=== PATIENT | female | born 1970 | race American Indian/Alaskan Native ===

== ENCOUNTER 2020-11-22 13:23 | Emergency (ER) | payer MEDICARE ==
[2020-11-22 14:52] VITALS: BP 116/79
--- NOTE | 2020-11-22 14:57 | Event Note ---
ED Screening Note ED Screening Note: meds topamax insulin metformin albuterol lisinopril jaquan motrin a/c migraines co todd for 2 weeks states its trobbing and I cant get rid of it odd affect states this is different no trauma no n/v pmh asthma htn dm migraines vss This initial assessment/diagnostic orders/clinical plan/treatment(s) is/are s ubject to change based on patients health status, clinical progression and re- assessment by fellow clinical providers in the ED. Further treatment and workup at subsequent clinical providers discretion. Patient/guardian urged not to elope from the ED as their condition may be serious if not clinically assessed and managed. Initial orders include: a/c migraines-- states pain different and pt has blunted affect she says its been a while since she had ct ct scan head ro ap
--- NOTE | 2020-11-22 16:22 | Cat Scan Report ---
CT BRAIN: 11/24/2020 INDICATION / CLINICAL INFORMATION: headache. COMPARISON: None available. FINDINGS: BRAIN/INTRACRANIAL STRUCTURES: Unenhanced CT images of the brain demonstrate no evidence of acute int racranial abnormality. Ventricles and sulci are normal in size and shape. There is no evidence of ischemic injury, hemorrhage, or mass. There are no abnormal extra-axial fluid collections. EXTRACRANIAL STRUCTURES: Unremarkable. IMPRESSION: Negative unenhanced CT of the brain. All CT scans at this location are performed using dose reduction to ALARA by means of automated expos ure control. Signer Name: Archie Bryant MD Signed: 11/22/2020 4:18 PM Workstation Name: [id number]
[2020-11-22] MEDS ORDERED: METOCLOPRAMIDE 10 MG TAB PO ONE (16:55)
[2020-11-22] MEDS ORDERED: diphenhydrAMINE 25 MG CAP PO ONE (16:55)
[2020-11-22] MEDS ORDERED: SUMAtriptan SUCCINATE 25 MG TAB PO ONE (17:00)
--- NOTE | 2020-11-22 17:03 | Emergency Department Report ---
ED Headache HPI - General Chief Complaint: Headache Stated Complaint: HEADACHE Time Seen by Provider: 11/22/20 14:54 - History of Present Illness Initial Comments: Patient is a 50-year-old female presents emergency room with complaints of a frontal headache that began 2 weeks ago. She states that it feels like a throbbing headache. She states that she has been taking topiramate, ibuprofen, Excedrin. She states that she only has a preventative migraine medication and has not taken abortive migraine medication. She states that she sees a neurologist and saw them earlier this month. She states that she also sees her primary care doctor Dr. Diaz. She states that this headache feels slightly worse than her usual migraines and believes she is having a breakthrough migraine. She denies any nausea, vomiting, fever, numbness, weakness, speech disturbance, gait disturbance. She states that occasionally her vision flare is blurry with increased pain but otherwise her vision is normal. She denies any blurry vision currently. Past medical history of diabetes, migraines, and hypertension. No allergies to medications. Allergies/Adverse Reactions: Allergies No Known Allergies Allergy (Verified 09/16/16 14:53) Home Medications: Ambulatory Orders Butalb/Acetaminophen/Caffeine [Fioricet 50-300-40 mg CAP] 1 cap PO Q8HR PRN #12 cap 11/22/20 Metoclopramide [Reglan] 10 mg PO Q8HR PRN #12 tablet 11/22/20 diphenhydrAMINE [Benadryl CAP] 25 mg PO Q6HR PRN #12 capsule 11/22/20 ED Review of Systems ROS: Stated complaint: HEADACHE Other details as noted in HPI Comment: All other systems reviewed and negative ED Past Medical Hx - Past Medical History Hx Hypertension: Yes Hx Diabetes: Yes Additional medical history: MIGRAINES - Surgical History Past Surgical History?: Yes Additional Surgical History: HYST/ R KNEE /LEFT 5TH FINGER SURG. TONSILLECTOMY - Social History Smoking Status: Never Smoker Substance Use Type: None - Medications Home Medications: Home Medications Medication Instructions Recorded Confirmed Last Taken Type Butalb/Acetaminophen/Caffeine 1 cap PO Q8HR PRN #12 cap 11/22/20 Unknown Rx [Fioricet 50-300-40 mg CAP] Metoclopramide [Reglan] 10 mg PO Q8HR PRN #12 tablet 11/22/20 Unknown Rx diphenhydrAMINE [Benadryl CAP] 25 mg PO Q6HR PRN #12 capsule 11/22/20 Unknown Rx ED Physical Exam - General Limitations: No Limitations General appearance: alert, in no apparent distress - Head Head exam: Present: atraumatic, normocephalic - Eye Eye exam: Present: normal appearance, PERRL, EOMI. Absent: periorbital swelling, periorbital tenderness - ENT ENT exam: Present: mucous membranes moist - Neck Neck exam: Present: full ROM. Absent: meningismus - Respiratory Respiratory exam: Present: normal lung sounds bilaterally. Absent: respiratory distress, wheezes, rales, rhonchi, stridor, chest wall tenderness, accessory muscle use, decreased breath sounds, prolonged expiratory - Cardiovascular Cardiovascular Exam: Present: regular rate, normal rhythm, normal heart sounds. Absent: systolic murmur, diastolic murmur, rubs, gallop - Neurological Exam Neurological exam: Present: alert, oriented X3, CN II-XII intact, normal gait. Absent: motor sensory deficit - Psychiatric Psychiatric exam: Present: normal affect, normal mood - Skin Skin exam: Present: warm, dry, intact ED Course Vital Signs 11/22/20 11/22/20 14:49 14:51 Pulse Rate 78 Respiratory 17 Rate Blood Pressure 116/79 [Right] O2 Sat by Pulse 99 Oximetry ED Medical Decision Making - Radiology Data Radiology results: report reviewed Ordering Physician: NOAM JO Date of Service: 11/22/20 Procedure(s): CT head/brain wo con Accession Number(s): [id number] cc: NOAM JO CT BRAIN: 11/24/2020 INDICATION / CLINICAL INFORMATION: headache. COMPARISON: None available. FINDINGS: BRAIN/INTRACRANIAL STRUCTURES: Unenhanced CT images of the brain demonstrate no evidence of acute intracranial abnormality. Ventricles and sulci are normal in size and shape. There is no evidence of ischemic injury, hemorrhage, or mass. There are no abnormal extra-axial fluid collections. EXTRACRANIAL STRUCTURES: Unremarkable. IMPRESSION: Negative unenhanced CT of the brain. All CT scans at this location are performed using dose reduction to ALARA by means of automated exposure control. Signer Name: Archie Bryant MD Signed: 11/22/2020 4:18 PM Workstation Name: [id number] Transcribed By: AO Dictated By: Archie Bryant MD Electronically Authenticated By: Archie Bryant MD Signed Date/Time: 11/22/201617 DD/ 14 TD/TT: - Medical Decision Making Patient is a 50-year-old female presents emergency room with complaints of a frontal headache that began 2 weeks ago. She states that it feels like a throbbing headache. She states that she has been taking topiramate, ibuprofen, Excedrin. She states that she only has a preventative migraine medication and has not taken abortive migraine medication. She states that she sees a neurologist and saw them earlier this month. She states that she also sees her primary care doctor Dr. Diaz. She states that this headache feels slightly worse than her usual migraines and believes she is having a breakthrough migraine. She denies any nausea, vomiting, fever, numbness, weakness, speech disturbance, gait disturbance. She states that occasionally her vision flare is blurry with increased pain but otherwise her vision is normal. She denies any blurry vision currently. Past medical history of diabetes, migraines, and hypertension. No allergies to medications. Vitals are stable. No focal neuro deficits on exam. CT head ordered prior to my examination and shows Negative unenhanced CT of the brain. Symptoms likely related to breakthrough migraine. Patient given p.o. Imitrex, Reglan, Benadryl and symptoms improved and she was feeling much better and ready to go home. Patient given prescription for Fioricet, Reglan, Benadryl. Advised patient Please take medication as prescribed as needed. Increase your water intake. Follow-up with your primary care doctor. Follow-up with your neurologist. return to emergency room for any new or worsening symptoms. Critical care attestation.: If time is entered above; I have spent that time in minutes in the direct care of this critically ill patient, excluding procedure time. ED Disposition Clinical Impression: Migraine headache Qualifiers: Migraine type: unspecified Status migrainosus presence: without status migrainosus Intractability: not intractable Qualified Code(s): G43.909 - Migraine, unspecified, not intractable, without status migrainosus Disposition: TO HOME OR SELFCARE Is pt being admited?: No Does the pt Need Aspirin: No Condition: Stable Instructions: Migraine Headache, [id number] Additional Instructions: Please take medication as prescribed as needed. Increase your water intake. Follow-up with your primary care doctor. Return to emergency room for any new or worsening symptoms. Prescriptions: diphenhydrAMINE [Benadryl CAP] 25 mg PO Q6HR PRN #12 capsule PRN Reason: headache Butalb/Acetaminophen/Caffeine [Fioricet 50-300-40 mg CAP] 1 cap PO Q8HR PRN #12 cap PRN Reason: headache Metoclopramide [Reglan] 10 mg PO Q8HR PRN #12 tablet PRN Reason: headache Referrals: your, primary care doctor [Other] - 2-3 Days your, neurologist [Other] - 2-3 Days Time of Disposition: 17:01 Print Language: JAPANESE
== END 2020-11-22 17:35 | disposition home or self-care (01) ==
LOC: ED 13:23
DX: G43.909 Migraine, unspecified, not intractable, without status migrainosus (principal); I10 Essential (primary) hypertension; E11.9 Type 2 diabetes mellitus without complications; Z98.890 Other specified postprocedural states; Z90.710 Acquired absence of both cervix and uterus; Z90.49 Acquired absence of other specified parts of digestive tract; Z79.899 Other long term (current) drug therapy
CPT/HCPCS: 70450

== ENCOUNTER 2021-07-26 01:30 | Emergency (ER) | payer MEDICARE ==
[2021-07-26 01:33] VITALS: BP 133/77
[2021-07-26] MEDS ORDERED: OXYMETAZOLINE 0.05% NASAL SPRAY NS ONE (03:16)
--- NOTE | 2021-07-26 03:20 | Emergency Department Report ---
HPI - General Chief Complaint: Nosebleed Time Seen by Provider: 07/26/21 03:03 - HPI HPI: MSE 5 The patient is a 51-year-old female present with a chief complaint of epistaxis. The patient states she had nasal turbinate reduction surgery performed appr oximately 6 days ago. Patient states this evening at approximate 17: 00 she developed bleeding from both nostrils left greater than right. Patient states she contacted her ENT told her to use the Afrin but if it did not improve to come to the emergency department. ED Past Medical Hx - Past Medical History Hx Hypertension: Yes Hx Diabetes: Yes Additional medical history: MIGRAINES - Surgical History Additional Surgical History: HYST/ R KNEE /LEFT 5TH FINGER SURG. TONSILLECTOMY - Family History Family history: no significant - Social History Smoking Status: Never Smoker Substance Use Type: None (Denies illicit drug use), Alcohol (Occasional) - Medications Home Medications: Home Medications Medication Instructions Recorded Confirmed Last Taken Type Butalb/Acetaminophen/Caffeine 1 cap PO Q8HR PRN #12 cap 11/22/20 Unknown Rx [Fioricet 50-300-40 mg CAP] Metoclopramide [Reglan] 10 mg PO Q8HR PRN #12 tablet 11/22/20 Unknown Rx diphenhydrAMINE [Benadryl CAP] 25 mg PO Q6HR PRN #12 capsule 11/22/20 Unknown Rx Amoxicillin/Potassium Clav 1 each PO BID #14 tablet 07/26/21 Unknown Rx [Augmentin 875-125 Tablet] ED Review of Systems ROS: Stated complaint: NASEL ISSUES Other details as noted in HPI ENT: epistaxis Physical Exam - Physical Exam Vital Signs: Vital Signs 07/26/21 01:32 Temperature 97.7 F Pulse Rate 77 Respiratory 20 Rate Blood Pressure 133/77 [Left] O2 Sat by Pulse 100 Oximetry Physical Exam: GENERAL: The patient is well-developed well-nourished female sitting in chair holding bloody towel to her nose. [] HEENT: Normocephalic. Atraumatic. Extraocular motions are intact. Blood present in nostrils bilaterally obscuring visualization of underlying structures NECK: Supple. Trachea midline CHEST/LUNGS: Clear to auscultation. There is no respiratory distress noted. HEART/CARDIOVASCULAR: Regular. There is no tachycardia. There is no gallop rub or murmur. ABDOMEN: Abdomen is soft, nontender. Patient has normal bowel sounds. There is no abdominal distention. SKIN: There is no rash. There is no edema. There is no diaphoresis. NEURO: The patient is awake, alert, and oriented. The patient is cooperative. The patient has no focal neurologic deficits. The patient has normal speech. GCS 15 MUSCULOSKELETAL: There is no evidence of acute injury. ED Course Vital Signs 07/26/21 01:32 Temperature 97.7 F Pulse Rate 77 Respiratory 20 Rate Blood Pressure 133/77 [Left] O2 Sat by Pulse 100 Oximetry - Reevaluation(s) Reevaluation #1: 07/26/21 03:40 2 x 2 gauze sprayed with Afrin inserted in each nostril and clamp placed 07/26/21 04:17 Patient states, it feels as though the bleeding is stopped. Patient does not feel blood running down the back of her throat. Awaiting labs we will leave packing in place - Consultations Consultation #1: 07/26/21 04:46 Case discussed with patient's ENT on-call Dr. Hernandez-states if necessary it would be okay to place a Rhino Rocket however the patient can follow-up with her ENT this morning at 08: 30. May write prescription for Augmentin over patient may see her ENT before getting the prescription filled ED Medical Decision Making - Lab Data Result diagrams: 07/26/21 03:48 07/26/21 03:48 Laboratory Tests 07/26/21 07/26/21 07/26/21 03:48 03:48 03:48 WBC 7.5 RBC 3.53 L Hgb 11.2 Hct 33.3 MCV 94 MCH 32 MCHC 34 RDW 13.9 Plt Count 281 Lymph % (Auto) 28.1 Wake % (Auto) 5.3 Eos % (Auto) 3.3 Baso % (Auto) 0.5 Lymph # (Auto) 2.1 Wake # (Auto) 0.4 Eos # (Auto) 0.3 Baso # (Auto) 0.0 Seg Neutrophils % 62.8 Seg Neutrophils # 4.7 PT 12.7 INR 0.90 APTT 26.0 Sodium 140 Potassium 3.9 Chloride 106.3 Carbon Dioxide 25 Anion Gap 13 BUN 22 H Creatinine 1.5 H Estimated GFR 45 BUN/Creatinine Ratio 15 Glucose 173 H Calcium 9.0 - Differential Diagnosis Epistaxis Critical care attestation.: If time is entered above; I have spent that time in minutes in the direct care of this critically ill patient, excluding procedure time. ED Disposition Clinical Impression: Epistaxis Disposition: 01 HOME / SELF CARE / HOMELESS Is pt being admited?: No Does the pt Need Aspirin: No Condition: Stable Instructions: Nosebleed, Adult Additional Instructions: Return to the emergency department should you develop worsening symptoms, inability to tolerate food or liquids, high fever or any other concerns Prescriptions: Amoxicillin/Potassium Clav [Augmentin 875-125 Tablet] 1 each PO BID #14 tablet Referrals: Your, ENT [Other] - 07/27/21 8:30 am Time of Disposition: 04:48
[2021-07-26 04:18] LABS: Basophils % (Auto) 0.5 % (0.0-1.8); Eosinophils # (Auto) 0.3 K/mm3 (0.0-0.4); Eosinophils % (Auto) 3.3 % (0.0-4.3); Hematocrit 33.3 % (30.3-42.9); Hemoglobin 11.2 gm/dl (10.1-14.3); Lymphocytes # (Auto) 2.1 K/mm3 (1.2-5.4); Lymphocytes % (Auto) 28.1 % (13.4-35.0); Mean Corpuscular HGB Conc 34 % (30-34); Mean Corpuscular Volume 94 fl (79-97); Monocytes # (Auto) 0.4 K/mm3 (0.0-0.8); Monocytes % (Auto) 5.3 % (0.0-7.3); Platelet Count 281 K/mm3 (140-440); Red Blood Count 3.53 M/mm3 (3.65-5.03); Red Cell Distribution Width 13.9 % (13.2-15.2)
[2021-07-26 04:30] LABS: INR 0.9 (0.87-1.13)
== END 2021-07-26 06:04 | disposition home or self-care (01) ==
LOC: ED 01:30
DX: R04.0 Epistaxis (principal); I10 Essential (primary) hypertension; E11.8 Type 2 diabetes mellitus with unspecified complications
CPT/HCPCS: 36415; 80048; 85025; 85610; 85730; 99283